=== PATIENT | female | born 1970 | race Hispanic/Latino ===

== ENCOUNTER 2018-09-20 19:07 | Emergency (ER) | payer MEDICAID ==
[2018-09-20 19:27] VITALS: BMI 22.6
[2018-09-20 19:49] VITALS: BP 122/84; PULSE 75; RESP 18; TEMP 97.4; O2SAT 97
--- NOTE | 2018-09-20 20:49 | C.PDOC ---
History Of Present Illness 47 year old female presents to the ER with a complaint of generalized body aches, chills, subjective fever, sore throat, cough, and congestion intermittently for the past week. 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 She has been taking OTC medications with improvement, however, decided to come in for further evaluation. Denies nausea, vomiting, or recent travel. 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 denies: Nausea, Vomiting Ear Symptoms: Bilateral: None Recent travel outside of the [place]: No Past Medical History Reviewed: Historical Data, Nursing Documentation, Vital Signs Vital Signs: Last Vital Signs Temp 97.4 F L 09/20/18 19:27 Pulse 75 09/20/18 19:27 Resp 18 09/20/18 19:27 BP 122/84 09/20/18 19:27 Pulse Ox 97 09/20/18 19:27 Family History: States: Unknown Family Hx - Social History Hx Alcohol Use: Yes Hx Substance Use: No - Immunization History Hx Tetanus Toxoid Vaccination: No Hx Influenza Vaccination: No Hx Pneumococcal Vaccination: No Review Of Systems Constitutional: Positive for: Fever (Subjective), Chills ENT: Positive for: Nose Congestion, Throat Pain Respiratory: Positive for: Cough Gastrointestinal: Negative for: Nausea, Vomiting Musculoskeletal: Positive for: Other (Generalized body aches) Physical Exam - Physical Exam Appears: Non-toxic Skin: Normal Color, Warm, Dry Head: Atraumatic, Normacephalic Eye(s): bilateral: Normal Inspection Ear(s): Bilateral: Normal Nose: Normal Oral Mucosa: Moist Throat: Normal, No Erythema, No Exudate Neck: Normal, Supple Chest: Symmetrical, No Tenderness Cardiovascular: Rhythm Regular Respiratory: Normal Breath Sounds, No Rales, No Rhonchi, No Wheezing Gastrointestinal/Abdominal: Soft, No Tenderness Back: No CVA Tenderness Neurological/Psych: Oriented x3, Normal Speech ED Course And Treatment O2 Sat by Pulse Oximetry: 97 (Room air) Pulse Ox Interpretation: Normal Progress Note: Patient is requesting flu swab and strep test, results were negative. Throat culture sent. Patient is resting comfortably in the ER in no acute distress, vitals are stable, will discharge home with instructions to continue OTC medications as needed and follow up with PMD for further evaluation or return if symptoms worsen. Disposition Counseled Patient/Family Regarding: Diagnosis, Need For Followup, Rx Given - Disposition Referrals: private doctor, PMD [Other] Disposition: HOME/ ROUTINE Disposition Time: 20:47 Condition: STABLE Additional Instructions: Continue current medications Increase fluids Bed rest Gargle with warm salt water/ use cough drops Follow up with your doctor Return to ER if worse Instructions: Viral Upper Respiratory Infection, Adult (DC) Forms: [employer] ([place]) - Clinical Impression Clinical Impression: Viral upper respiratory infection - PA / [employer] STRIPPER / Resident Statement MD/DO has reviewed & agrees with the documentation as recorded. - Scribe Statement The provider has reviewed the documentation as recorded by the Scribjuan manuel Jacobs All medical record entries made by the Yosefibjuan manuel were at my direction and personally dictated by me. I have reviewed the chart and agree that the record accurately reflects my personal performance of the history, physical exam, medical decision making, and the department course for this patient. I have also personally directed, reviewed, and agree with the discharge instructions and disposition.
== END 2018-09-20 21:01 | disposition home or self-care (01) ==
LOC: C.ER 19:07
DX: J06.9 Acute upper respiratory infection, unspecified (principal)